=== PATIENT | female | born 1990 | race Caucasian/White ===

== ENCOUNTER 2020-01-13 13:23 | Emergency (ER) | payer OTHER ==
[2020-01-13 14:03] LABS: Urine Blood NEGATIVE (NEG); Urine Glucose NEGATIVE (NEG); Urine Protein 1+ (NEG)
[2020-01-13 14:40] LABS: Urine Bacteria <20 /HPF (<20); Urine Culture Reflex Order NOT NEEDED; Urine Mucus 2+ /HPF (NONE SEEN); Urine RBC <5 /HPF (NONE SEEN)
--- NOTE | 2020-01-13 14:45 | ER ---
Nurse's Notes [facility] Name: Humaira Kaba Age: 29 yrs Sex: Female : 1990 Arrival Date: 01/13/2020 Time: 13:27 Bed 17 Private MD: Diagnosis: Vaginitis, vulvitis and vulvovaginitis in diseases classified elsewhere Presentation: 01/12 13:32 Chief complaint: Patient states: Lower abdominal pain x 3 days, small amount of white jl7 discharge, spot of blood on a pad this morning, low back pain, denies burning or pain with urination, states "I definitely need a STD check and I have endometriosis so I don't know if that's flaring up. My ex gave me gonorrhea last year and I almost from it.". Coronavirus screen: Proceed with normal triage. Patient denies a cough. Patient denies shortness of breath or difficulty breathing. Patient denies measured and/or subjective temperature greater than 100.4F prior to today's visit. Patient denies travel on a cruise ship or to a country the [facility] currently lists as an affected area. Patient denies contact with known and/or suspected case of COVID-19. Ebola Screen: No symptoms or risks identified at this time. Initial Sepsis Screen: Does the patient meet any 2 criteria? No. Patient's initial sepsis screen is negative. Does the patient have a suspected source of infection? No. Patient's initial sepsis screen is negative. Risk Assessment: Do you want to hurt yourself or someone else? Patient reports no desire to harm self or others. Onset of symptoms was January 10, 2020. Care prior to arrival: None. 13:32 Method Of Arrival: Ambulatory [facility] 13:32 Acuity: QUINN 4 jl7 Triage Assessment: 13:38 General: Appears in no apparent distress. uncomfortable, Behavior is cooperative, jl7 anxious. Pain: Complains of pain in right lower quadrant and left lower quadrant Pain currently is 8 out of 10 on a pain scale. [employer]: 13:38 LMP 20077 Historical: - Allergies: 13:38 PENICILLINS; jl7 13:38 Codeine; jl7 13:38 Iodine; jl7 13:38 Latex, Natural Rubber; jl7 13:38 Vicodin; jl7 - Home Meds: 13:38 Adderall XR Oral [Active]; jl7 - PMHx: 13:38 ADD/ADHD; jl7 - PSHx: 13:38 ; partial hysterectomy; jl7 - Immunization history:: Adult Immunizations unknown. - Social history:: Smoking status: Patient denies any tobacco usage or history of. Screenin:44 Abuse screen: Denies threats or abuse. Denies injuries from another. Nutritional ca1 screening: No deficits noted. Tuberculosis screening: No symptoms or risk factors identified. Fall Risk None identified. Assessment: 13:44 General: Appears in no apparent distress. comfortable, Behavior is calm, cooperative, ca1 appropriate for age. Pain: Complains of pain in abdomen and left lower quadrant and right lower quadrant Pain does not radiate. Pain currently is 8 out of 10 on a pain scale. Pain began 2-3 days ago. Neuro: Level of Consciousness is awake, alert, obeys commands, Oriented to person, place, time, situation. Cardiovascular: Heart tones S1 S2 present Capillary refill < 3 seconds Patient's skin is warm and dry. Respiratory: Airway is patent Respiratory effort is even, unlabored, Respiratory pattern is regular, symmetrical, Breath sounds are clear bilaterally. GI: Abdomen is flat, non-distended, Bowel sounds present X 4 quads. Abd is soft X 4 quads Abdomen is tender to palpation in right lower quadrant and left lower quadrant. : Reports vaginal bleeding that is spotty, vaginal discharge. EENT: No signs and/or symptoms were reported regarding the EENT system. Derm: Skin is intact, is healthy with good turgor, Skin is pink, warm \\T\\ dry. Musculoskeletal: Circulation, motion, and sensation intact. Capillary refill < 3 seconds. 14:22 Reassessment: Patient appears in no apparent distress at this time. Patient and/or ca1 family updated on plan of care and expected duration. Pain level reassessed. Patient is alert, oriented x 3, equal unlabored respirations, skin warm/dry/pink. 14:53 Reassessment: Patient appears in no apparent distress at this time. Patient is alert, ca1 oriented x 3, equal unlabored respirations, skin warm/dry/pink. Pt refused to stay for observation post IM abx administration. States, "I've had this before when I had an STD". Vital Signs: 13:32 BP 139 / 98; Pulse 110; Resp 17; Temp 97.8; Pulse Ox 99% ; Pain 8/10; jl7 14:22 BP 123 / 84; Pulse 98; Resp 15 S; Pulse Ox 100% on R/A; ca1 ED Course: 13:27 Patient arrived in ED. as 13:37 Triage completed. jl7 13:38 Arm band placed on right wrist. jl7 13:42 Ricky Jara PA is PHCP. jr8 13:42 Pablo Payne MD is Attending Physician. jr8 13:42 Madhuri Majano, RN is Primary Nurse. ca1 13:44 Patient has correct armband on for positive identification. Placed in gown. Bed in low ca1 position. Call light in reach. Side rails up X 1. Pulse ox on. NIBP on. Warm blanket given. 14:22 Assist provider with pelvic exam: Set up pelvic tray. Performed by Ricky LAMBERT ca1 Specimens sent to lab. Patient tolerated well. Wet prep swab sent to lab. GC probe. 14:23 GC (GONORR/CHLAMYDIA) Probe Sent. ca1 14:23 Wet Prep Sent. ca1 14:43 Nic Tello MD is Referral Physician. jr8 14:54 Patient did not have IV access during this emergency room visit. ca1 Administered Medications: 14:51 Drug: Rocephin (cefTRIAXone) 250 mg Route: IM; Site: left gluteus; ca1 14:53 Follow up: Response: Medication administered at discharge. ca1 14:51 Drug: Zithromax 1 grams Route: PO; ca1 14:53 Follow up: Response: Medication administered at discharge. ca1 Outcome: 14:45 Discharge ordered by . jr8 14:54 Discharged to home ambulatory. ca1 14:54 Condition: stable 14:54 Discharge instructions given to patient, Instructed on discharge instructions, follow up and referral plans. safe sex practices, Demonstrated understanding of instructions, follow-up care. 14:55 Patient left the ED. ca1 Signatures: Ester De La Torre Josh, PA PA jr8 Mina Lee, RN RN jl7 Madhuri Majano, DONNA RN ca1
--- NOTE | 2020-01-13 14:45 | EDPHYS ---
Physician Documentation [facility] Name: Humaira Kaba Age: 29 yrs Sex: Female : 1990 Arrival Date: 01/13/2020 Time: 13:27 Bed 17 Private MD: Pablo Couch HPI: 01/12 13:53 This 29 yrs old Female presents to ER via Ambulatory with complaints of jr8 Pelvic and breast pain. 13:53 Onset: The symptoms/episode began/occurred gradually. Associated signs and symptoms: jr8 Pertinent positives: vaginal bleeding and discharge. Modifying factors: The patient symptoms are alleviated by nothing, the patient symptoms are aggravated by nothing. It is unknown whether or not the patient has had similar symptoms in the past. The patient has not recently seen a physician. Patient stated that she had partial hysterectomy. Has history of endometriosis as well. Has noticed more lumps in breasts and started to have light bleeding and discharge from vagina. Stated that she hasn't had a lot of problems since surgery until now. Strong history of cancer and is worried that something else may be going on. 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 - Social history:: Smoking status: Patient denies any tobacco usage or history of. ROS: 13:53 Eyes: Negative for injury, pain, redness, and discharge, ENT: Negative for injury, jr8 pain, and discharge, Neck: Negative for injury, pain, and swelling, Cardiovascular: Negative for chest pain, palpitations, and edema, Respiratory: Negative for shortness of breath, cough, wheezing, and pleuritic chest pain, Abdomen/GI: Negative for abdominal pain, nausea, vomiting, diarrhea, and constipation, Back: Negative for injury and pain, MS/Extremity: Negative for injury and deformity, Skin: Negative for injury, rash, and discoloration, Neuro: Negative for headache, weakness, numbness, tingling, and seizure. 13:53 : Positive for pelvic pain, vaginal bleeding, vaginal discharge. Exam: 13:53 Eyes: Pupils equal round and reactive to light, extra-ocular motions intact. Lids and jr8 lashes normal. Conjunctiva and sclera are non-icteric and not injected. Cornea within normal limits. Periorbital areas with no swelling, redness, or edema. ENT: Nares patent. No nasal discharge, no septal abnormalities noted. Tympanic membranes are normal and external auditory canals are clear. Oropharynx with no redness, swelling, or masses, exudates, or evidence of obstruction, uvula midline. Mucous membranes moist. Neck: Trachea midline, no thyromegaly or masses palpated, and no cervical lymphadenopathy. Supple, full range of motion without nuchal rigidity, or vertebral point tenderness. No Meningismus. Cardiovascular: Regular rate and rhythm with a normal S1 and S2. No gallops, murmurs, or rubs. Normal PMI, no JVD. No pulse deficits. Respiratory: Lungs have equal breath sounds bilaterally, clear to auscultation and percussion. No rales, rhonchi or wheezes noted. No increased work of breathing, no retractions or nasal flaring. Abdomen/GI: Soft, non-tender, with normal bowel sounds. No distension or tympany. No guarding or rebound. No evidence of tenderness throughout. Back: No spinal tenderness. No costovertebral tenderness. Full range of motion. Skin: Warm, dry with normal turgor. Normal color with no rashes, no lesions, and no evidence of cellulitis. MS/ Extremity: Pulses equal, no cyanosis. Neurovascular intact. Full, normal range of motion. Neuro: Awake and alert, GCS 15, oriented to person, place, time, and situation. Cranial nerves II-XII grossly intact. Motor strength 5/5 in all extremities. Sensory grossly intact. Cerebellar exam normal. Normal gait. 13:53 Chest/axilla: Inspection: normal, Palpation: is normal, Axilla: are normal, no abscess, no cellulitis, no mass, no palpable nodes, no rash, Breasts: mass(es), that is small, in both breasts, that is tender, that is freely movable, nipple discharge, is not appreciated, rash, is not appreciated, swelling, is not appreciated, tenderness, that is mild in both breasts, Lymph nodes: lymphadenopathy is not appreciated. 13:53 : Pelvic Exam: External exam: is normal, no appreciated Bartholin's cyst, no erythema, not excoriated, no evidence of foreign body, no lesions, no ulcerations, no warts seen, Speculum exam: no bleeding is noted, no cervicitis, os that is closed, discharge, white, the nurse was present for the exam. Vital Signs: 13:32 BP 139 / 98; Pulse 110; Resp 17; Temp 97.8; Pulse Ox 99% ; Pain 8/10; jl7 14:22 BP 123 / 84; Pulse 98; Resp 15 S; Pulse Ox 100% on R/A; ca1 MDM: 13:43 Patient medically screened. [facility] 14:40 Data reviewed: vital signs, nurses notes, lab test result(s), and as a result, I will jr8 discharge patient. Data interpreted: Pulse oximetry: on room air is 100 %. Interpretation: normal. Counseling: I had a detailed discussion with the patient and/or guardian regarding: the historical points, exam findings, and any diagnostic results supporting the discharge/admit diagnosis, lab results, the need for outpatient follow up, an OB/Gyne specialist, to return to the emergency department if symptoms worsen or persist or if there are any questions or concerns that arise at home. ED course: Counseled patient on breast exam and that at this time what she is describing and what we see is compatible with fibrocystic breast changes which is benign. Concern for STD related infection based on exam and wet prep. Will treat as such . 01/12 13:43 Order name: Urine Microscopic Only; Complete Time: 14:40 [facility] 01/12 13:56 Order name: Urine Dipstick--Ancillary (enter results); Complete Time: 14:23 eb 01/12 13:56 Order name: Urine --Ancillary (enter results); Complete Time: 14:23 eb 01/12 14:01 Order name: GC (GONORR/CHLAMYDIA) Probe [facility] 01/12 14:01 Order name: Wet Prep; Complete Time: 14:35 [facility] 01/12 13:43 Order name: Urine Dipstick-Ancillary (obtain specimen); Complete Time: 13:57 [facility] 01/12 13:57 Order name: Pelvic Exam Setup; Complete Time: 13:57 ca1 Administered Medications: 14:51 Drug: Rocephin (cefTRIAXone) 250 mg Route: IM; Site: left gluteus; ca1 14:53 Follow up: Response: Medication administered at discharge. ca1 14:51 Drug: Zithromax 1 grams Route: PO; ca1 14:53 Follow up: Response: Medication administered at discharge. ca1 Disposition: 01/13/20 14:45 Discharged to Home. Impression: Vaginitis, vulvitis and vulvovaginitis in diseases classified elsewhere. - Condition is Stable. - Discharge Instructions: Sexually Transmitted Disease, Vaginitis. - Medication Reconciliation Form, Thank You Letter, Antibiotic Education, Prescription Opioid Use form. - Follow up: Nic Tello MD; When: 7 - 10 days; Reason: Recheck today's complaints, Continuance of care, Re-evaluation by your physician. - Problem is new. - Symptoms are unchanged. Addendum: 01/14/2020 16:58 Co-signature as Attending Physician, Pablo Payne MD I agree with the assessment and c frank plan of care. Signatures: Dispatcher [employer] [facility] Pablo Payne MD MD cha Roszak, Josh, PA PA jr8 Mina Lee RN RN jl7 Madhuri Majano RN RN ca1 Corrections: (The following items were deleted from the chart) 01/12 13:45 13:44 GC Culture+[id number].LAB.BRZ ordered. [facility] 14:55 14:45 01/13/2020 14:45 Discharged to Home. Impression: Vaginitis, vulvitis and ca1 vulvovaginitis in diseases classified elsewhere. Condition is Stable. Forms are Medication Reconciliation Form, Thank You Letter, Antibiotic Education, Prescription Opioid Use. Follow up: Nic Tello; When: 7 - 10 days; Reason: Recheck today's complaints, Continuance of care, Re-evaluation by your physician. Problem is new. Symptoms are unchanged. jr8
[2020-01-13] MEDS ORDERED: WATER FOR INJ,STERILE 10 ML ONE (14:53)
[2020-01-13] MEDS ORDERED: AZITHROMYCIN 250 MG TAB ONE (14:53)
[2020-01-13] MEDS ORDERED: CEFTRIAXONE 250 MG/VIAL ONE (14:53)
[2020-01-13 15:14] VITALS: TEMP 97.8
[2020-01-13 15:16] VITALS: BP 123/84; O2SAT 100
[2020-01-16 20:45] LABS: C.trachomatis RNA,TMA Not Detected (Not Detected)
== END 2020-01-13 14:55 | disposition home or self-care (01) ==
LOC: ER 13:23
DX: N77.1 Vaginitis, vulvitis and vulvovaginitis in diseases classified elsewhere (principal); Z88.0 Allergy status to penicillin; Z88.6 Allergy status to analgesic agent; Z91.09 Other allergy status, other than to drugs and biological substances; Z91.040 Latex allergy status; F90.9 Attention-deficit hyperactivity disorder, unspecified type
CPT/HCPCS: 81025; 87210; 87590; 87490; 96372; 99284; J0696; 81003; 81015